=== PATIENT | female | born 1965 | race Caucasian/White ===

== ENCOUNTER 2016-09-02 11:07 | Emergency (ER) | payer OTHER ==
[~2016-09-02] VITALS: Ht 172.7 cm; Wt 81.6 kg
[2016-09-02] MEDS ORDERED: PROGESTERONE200 M1 PO (11:19)
[2016-09-02] MEDS ORDERED: ARMOUR THYROID60 M1 PO (11:19)
--- NOTE | 2016-09-02 11:26 | Urgent Treatment Center Report ---
History of Present Issue Date/Time Seen by Provider 09/02/16 1123 Visit Reason Pt arrived:Walked Presenting Problem:c/o increase in urinary frequency, urgency and burning while urination x 2 days. Location if Accident: Onset of symptoms date/time:/ or onset unknown for:MEDICAL HX UNKNOWN Have you (or family members/close friends) recently traveled outside the [place]? N If Yes, where/when: Have you had exposure to infectious disease within the past month? TB? Other? Specify: Patient states that she has been having urinary Frequency, urgency and occassionally burning with urination states that it feels like she is having like spasms in her bladder at times. States that this has been going on x 2 days so she came in ALLERGIES Coded Allergies: No Known Drug Allergies (NKDA) (12/25/13) Home Medications Reported Medications Thyroid ([place] Thyroid) 60 MG PO DAILY PROGESTERONE,MICRONIZED (Progesterone) 200 MG PO DAILY History Medical History General Angina: No [place]: No Hypertension? No Hyperlipidemia? No CHF? No COPD? No Asthma? No Hernia? No Thyroid Problems? Yes CVA? No Seizures? No Diabetes? No UTI? No Stones? No GB Disease: No Hepatitis? No Cataracts? No Glaucoma? No MRSA? No TB? No Cancer? No Immunization HX DT/Tetanus 5-10 YRS Surgical Hx Previous Surgery?Y RT SHOULDER TUBAL Family History Family HX Diabetes No CAD No Hypertension No Hyperlipidemia No Cancer Yes TB No Social History Smoking Hx Smoker: Former Smoker Tobacco: No Alcohol Alcohol: No Review of Systems All Other Systems Reviewed and Negative Genitourinary frequency, hesitancy. Physical Exam Vital Signs Vital Signs Date Time Temp Pulse Resp B/P Pulse O2 O2 Flow FiO2 Ox Delivery Rate 09/02 1117 98.6 98 20 147/89 96 General Appearance normal appearance, WD/WN, no apparent distress, mild distress Ear, Nose, Throat hearing grossly normal, normal ENT inspection, normal pharynx Respiratory Status Yes: trachea midline, chest symmetrical, non tender chest. No: respiratory distress. Cardiovascular normal exam, regular rate/rhythm, no peripheral edema Neurologic alert, normal exam, no motor/sensory deficits, oriented x 3 Medical Decision Making LABS/Meds/Orders Pt receiving controlled substance in ED? No Results/Orders Laboratory Tests 09/02/16 1116: Urine Color YELLOW, Urine Appearance SLIGHTLY CLOUDY, Urine pH 6.5, Ur Specific [place] 1.020, Urine Protein NEG, Urine Ketones NEG, Urine Blood NEG, Urine Nitrate NEG, Urine Bilirubin NEG, Urine Urobilinogen 0.2, Ur Leukocyte Esterase NEG, Urine Glucose NEG Orders Procedure Date/time Status CULTURE, URINE 09/02 113 Active [facility] URINE DIPSTICK 09/02 1116 Complete Departure Departure Time of Disposition 1132 Disposition DC Home or Self Care(routine) Clinical Impression Primary Impression: Urinary frequency Condition STABLE Patient Instructions Urine Volume Additional Instructions Take Medications as prescribed Follow up family doctor Return if needed Discharge Counseling Counseled pt/family regarding diagnosis, medications/RX, home care Prescriptions Current Visit Scripts Phenazopyridine HCl (Pyridium) 200 MG PO TID #6 TAB at 1133
--- NOTE | 2016-09-02 11:26 | Urgent Treatment Center Report ---
History of Present Issue Date/Time Seen by Provider 09/02/16 1123 Visit Reason Pt arrived:Walked Presenting Problem:c/o increase in urinary frequency, urgency and burning while urination x 2 days. Location if Accident: Onset of symptoms date/time:/ or onset unknown for:MEDICAL HX UNKNOWN Have you (or family members/close friends) recently traveled outside the [place]? N If Yes, where/when: Have you had exposure to infectious disease within the past month? TB? Other? Specify: Patient states that she has been having urinary Frequency, urgency and occassionally burning with urination states that it feels like she is having like spasms in her bladder at times. States that this has been going on x 2 days so she came in ALLERGIES Coded Allergies: No Known Drug Allergies (NKDA) (12/25/13) Home Medications Reported Medications Thyroid ([place] Thyroid) 60 MG PO DAILY PROGESTERONE,MICRONIZED (Progesterone) 200 MG PO DAILY History Medical History General Angina: No [place]: No Hypertension? No Hyperlipidemia? No CHF? No COPD? No Asthma? No Hernia? No Thyroid Problems? Yes CVA? No Seizures? No Diabetes? No UTI? No Stones? No GB Disease: No Hepatitis? No Cataracts? No Glaucoma? No MRSA? No TB? No Cancer? No Immunization HX DT/Tetanus 5-10 YRS Surgical Hx Previous Surgery?Y RT SHOULDER TUBAL Family History Family HX Diabetes No CAD No Hypertension No Hyperlipidemia No Cancer Yes TB No Social History Smoking Hx Smoker: Former Smoker Tobacco: No Alcohol Alcohol: No Review of Systems All Other Systems Reviewed and Negative Genitourinary frequency, hesitancy. Physical Exam Vital Signs Vital Signs Date Time Temp Pulse Resp B/P Pulse O2 O2 Flow FiO2 Ox Delivery Rate 09/02 1117 98.6 98 20 147/89 96 General Appearance normal appearance, WD/WN, no apparent distress, mild distress Ear, Nose, Throat hearing grossly normal, normal ENT inspection, normal pharynx Respiratory Status Yes: trachea midline, chest symmetrical, non tender chest. No: respiratory distress. Cardiovascular normal exam, regular rate/rhythm, no peripheral edema Neurologic alert, normal exam, no motor/sensory deficits, oriented x 3 Medical Decision Making LABS/Meds/Orders Pt receiving controlled substance in ED? No Results/Orders Laboratory Tests 09/02/16 1116: Urine Color YELLOW, Urine Appearance SLIGHTLY CLOUDY, Urine pH 6.5, Ur Specific [place] 1.020, Urine Protein NEG, Urine Ketones NEG, Urine Blood NEG, Urine Nitrate NEG, Urine Bilirubin NEG, Urine Urobilinogen 0.2, Ur Leukocyte Esterase NEG, Urine Glucose NEG Orders Procedure Date/time Status CULTURE, URINE 09/02 113 Active [facility] URINE DIPSTICK 09/02 1116 Complete Departure Departure Time of Disposition 1132 Disposition DC Home or Self Care(routine) Clinical Impression Primary Impression: Urinary frequency Condition STABLE Patient Instructions Urine Volume Additional Instructions Take Medications as prescribed Follow up family doctor Return if needed Discharge Counseling Counseled pt/family regarding diagnosis, medications/RX, home care Prescriptions Current Visit Scripts Phenazopyridine HCl (Pyridium) 200 MG PO TID #6 TAB at 1135
[2016-09-02 11:27] LABS: URINE BILIRUBIN - DIPSTICK NEG (NEG); URINE BLOOD NEG (NEG)
[2016-09-02] MEDS ORDERED: PYRIDIUM200 M2 PO (11:37)
[2016-09-02 11:39] VITALS: BP 147/89
== END 2016-09-02 11:43 | disposition home or self-care (01) ==
LOC: UTC 11:07
PROVIDERS: Nurse Practitioner
DX: R35.0 Frequency of micturition (principal); R30.0 Dysuria

== ENCOUNTER 2017-02-12 18:57 | Emergency (ER) | payer OTHER ==
[~2017-02-12] VITALS: Ht 172.7 cm; Wt 86.2 kg
[~2017-02-12 18:57] MED LIST: ARMOUR THYROID60 M1 PO; PROGESTERONE200 M1 PO; PYRIDIUM200 M2 PO
[2017-02-12] MEDS ORDERED: ERYTHROMYCI4 GM/TUBE OP (19:20)
--- NOTE | 2017-02-12 19:21 | Urgent Treatment Center Report ---
History of Present Issue Date/Time Seen by Provider 02/12/171911 Visit Reason Pt arrived:Walked Presenting Problem:PT STATES STY TO R EYE SINCE SATURDAY. STATES DRAINAGE. STATES USING WARM COMPRESSES TO EYE Location if Accident: Onset of symptoms date/time:/ or onset unknown for:MEDICAL HX UNKNOWN Have you (or family members/close friends) recently traveled outside the [place]? N If Yes, where/when: Have you had exposure to infectious disease within the past month? TB? Other? Specify: Patient states that ever since Saturday she noticed that her lower lid on her right eye was slightly swollen States that she has a history of Styes but this one has continued and not improved with use of warm rag placed on eye State that she has been unable to get it to open and drain ALLERGIES Coded Allergies: No Known Allergies (02/12/17) Home Medications Reported Medications Thyroid ([place] Thyroid) 60 MG PO DAILY PROGESTERONE,MICRONIZED (Progesterone) 200 MG PO DAILY History Medical History General CAD? No Angina: No [place]: No Hypertension? No Hyperlipidemia? No CHF? No DVT? No PE? No COPD? No Asthma? No Anemia? No GERD? No Gastric ulcers? No GI Bleed? No Hernia? No Thyroid Problems? Yes Hypothyroidism? No CVA? No Seizures? No Diabetes? No Renal Insuffiency? No UTI? No Stones? No BPH? No GB Disease: No Nephritic Syndrome? No Asplenia? No Hepatitis? No Sickle Cell Disease? No Arthritis? No Migraines? No Cataracts? No Glaucoma? No MRSA? No HIV? No TB? No Anxiety? No Depression? No Cancer? No Immunization HX DT/Tetanus 5-10 YRS Surgical Hx Previous Surgery?Y RT SHOULDER TUBAL Family History Family HX Diabetes No CAD No Hypertension No Hyperlipidemia No Cancer Yes TB No Social History Smoking Hx Smoker: Never Smoker Tobacco: No Alcohol Alcohol: No Review of Systems All Other Systems Reviewed and Negative Eyes other (stye on right eye) Physical Exam Vital Signs Vital Signs Date Time Temp Pulse Resp B/P Pulse O2 O2 Flow FiO2 Ox Delivery Rate 02/12 190 97.7 90 20 137/92 98 General Appearance normal appearance, WD/WN, no apparent distress Eye Exam - right eye eyelid inflammation, bilateral eye normal exam Respiratory Status Yes: trachea midline, chest symmetrical, non tender chest. No: respiratory distress. 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 No Departure Departure Time of Disposition 1912 Disposition DC Home or Self Care(routine) Clinical Impression Primary Impression: Sty Qualifiers: Laterality: right Eyelid: lower Qualified Code: H00.012 - Hordeolum externum right lower eyelid Condition STABLE Referrals BONNY MARTINEZ,ALICIA Keane MD,[place] (Family): 2 Days-Call Office Patient Instructions DI for Hordeolum Additional Instructions Apply warm compresses four to six times a day for about 15 minutes at a time to help the drainage. Keep the eyes closed when applying the warm compresses. Gently scrub the eyelid with tap water or with a mild, nonirritating soap, or shampoo (such as baby shampoo). This may help with drainage. Close the eyes as you scrub so you do not injure your eyes. Do not squeeze or puncture the stye. A more serious infection may occur as a result. Discontinue the use of eye makeup as well as eye lotions and creams because they may be contaminated with the bacteria from the infection. Discontinue wearing contact lenses while a stye is present because the infection may cause an infection to spread to the cornea with the continued use of contact lenses Discharge Counseling Counseled pt/family regarding diagnosis, medications/RX, home care, follow up needs Prescriptions Current Visit Scripts ERYTHROMYCIN BASE (Erythromycin Ophth Ointment 0.5%) 1 CM OP 5XDAY #1 TUBE in infected eye at 1931
[2017-02-12 19:23] VITALS: BP 137/92
--- OUTSIDE RECORDS SUMMARY | 2017-02-15 17:32 | External Medical Summary Rpt ---
Author Author [employer] Organization [employer] Address Unknown Phone Unavailable Purpose Continuity of Care Document - through 2016
--- OUTSIDE RECORDS SUMMARY | 2017-02-15 17:32 | External Medical Summary Rpt ---
Author Author LANE[facility] Address Unknown Phone Purpose Continuity of Care Document - 2012 through 2016
--- OUTSIDE RECORDS SUMMARY | 2017-02-15 17:32 | External Medical Summary Rpt ---
Demographics Preferred Language Belarusian Marital Status Unknown Baptist Affiliation Unknown Race Unknown Ethnic Group Unknown Author Author , LANEY CAVAZOS Address Unknown Phone Immunization Unable to retrieve immunization data due to connection failure with Immunization Registry. Please try again later.
--- OUTSIDE RECORDS SUMMARY | 2017-02-15 17:32 | External Medical Summary Rpt ---
Demographics Preferred Language Faroese Marital Status Unknown Pentecostal Affiliation Unknown Race Unknown Ethnic Group Unknown Author Author , LANEY CAVAZOS Address Unknown Phone Immunization Unable to retrieve immunization data due to connection failure with Immunization Registry. Please try again later.
== END 2017-02-12 19:23 | disposition home or self-care (01) ==
LOC: UTC 18:57
DX: H00.012 Hordeolum externum right lower eyelid (principal)

== ENCOUNTER → 2017-04-23 | Outpatient (CLI) | payer OTHER ==
[~2017-04-23] MED LIST changes: +ERYTHROMYCI4 GM/TUBE OP
[2017-04-23 10:05] LABS: BUN 9 mg/dL (7-18)
[2017-04-23 10:15] LABS: GFR (ESTIMATED) 65 ML/MIN (59-)
== END ==
LOC: LAB 08:31
PROVIDERS: Family Medicine
DX: E03.9 Hypothyroidism, unspecified (principal); Z79.899 Other long term (current) drug therapy